=== PATIENT | male | born 1995 | race Caucasian/White ===

== ENCOUNTER 2021-10-10 11:20 | Outpatient (CLI) | payer OTHER ==
--- NOTE | 2021-10-10 14:10 | XRay Report ---
CHEST 2 VIEWS INDICATION: TO RULE OUT ACTIVE TB. COMPARISON: none FINDINGS: Support devices: None. Heart: Within normal limits. Lungs/pleura: No acute air space or interstitial disease. No pleural abnormality or pneumothorax. Additional findings: None. IMPRESSION: No acute findings. No x-ray findings to suggest primary or reactive tuberculosis. Signer Name: Tommy Barrett Jr, MD Signed: 10/10/2021 2:06 PM Workstation Name: [id number]
== END 2021-10-10 11:21 | disposition home or self-care (01) ==
LOC: XRAY 11:20
PROVIDERS: ATTEND Internal Medicine
DX: A15.9 Respiratory tuberculosis unspecified (principal)
CPT/HCPCS: 71046